=== PATIENT | female | born 1970 | race Caucasian/White ===

== ENCOUNTER 2016-07-19 15:51 | Inpatient (IN) | payer OTHER ==
[~2016-07-19] VITALS: Ht 165.1 cm; Wt 100.5 kg
[~2016-07-19 15:51] MED LIST: AUGMENTIN875 MG PO; BACTRIM,SEPT1 TABLET PO; CLEOCIN300 MG PO; Combivent IH; HUMULIN 50100 UNIT/1 SQ; KETOROLAC TROME10 MG PO; KLONOPIN0.5 M1 PO; LANTUS (UNITS)1 UNIT SC; LANTUS 3 M100 UNITS/ PO; LANTUS 3 M100 UNITS/ SC; LANTUS 3 M100 UNITS1 SC; LEVAQUIN750 MG PO; Levaquin PO; Motrin PO; NOVOLIN 70100 UNIT/1 SQ; NOVOLOG PE100 UNITS/ SC; OXYCODONE5 MG PO; PERCOCET 5/31 TABLET PO; PROZAC20 MG PO; PROZAC40 MG PO; PROzac PO; ROXICODONE5 MG PO; Robitussin AC,Tussi- PO; SEROQUEL200 MG PO; SEROQUEL400 MG PO; SOMA350 MG PO; XANAX1 MG PO; oxyCODONE PO; predniSONE PO
[2016-07-19 16:39] LABS: HEMATOCRIT 28.8 % (36.0-46.0); MCH 27.5 PG (29.0-34.0); MCV 83.5 FL (83-99); MEAN PLAT.VOLUME 8.9 uM^3 (9.5-12.4); NRBC (%) 0.1 /100 WBC (0-0); PLATELET COUNT 230 K/uL (156-360); RBC DIS.WIDTH-CV 15.2 % (11.8-14.6); RBC DIS.WIDTH-SD 46.5 % (39-53); RED BLOOD COUNT 3.45 M/uL (3.80-5.20); WHITE BLOOD COUNT 16.6 K/uL (4.1-10.2)
[2016-07-19 16:47] LABS: CHLORIDE 97 mEq/L (99-109); POTASSIUM 4.3 mEq/L (3.7-5.4); SODIUM 128 mEq/L (136-147)
[2016-07-19 16:49] LABS: GLUCOSE 312 mg/dL (70-99)
[2016-07-19 16:50] LABS: ANION GAP 6 MEQ/L (2-14)
[2016-07-19 16:53] LABS: GFR ESTIMATE (CALCULATED) > 59 mL/min/
[2016-07-19 16:54] LABS: UREA NITROGEN (BUN) 13 mg/dL (9-23)
[2016-07-19 17:06] LABS: ADD MIUA? YES; BILIRUBIN NEGATIVE; BLOOD SMALL; COLOR YELLOW ((YELLOW)); GLUCOSE (STRIP) >=500; KETONES NEGATIVE; LEUKOCYTES NEGATIVE; NITRITE NEGATIVE; PROTEIN (STRIP) 100; SPECIFIC GRAVITY 1.026 (1.000-1.030); UROBILINOGEN 0.2 MG/DL (0.2-1.0)
[2016-07-19 17:18] LABS: BACTERIA NONE SEEN /HPF; EPITHELIAL CELLS RARE /HPF; MUCUS NONE SEEN /LPF; RED BLOOD CELLS 0-5 /HPF (0-5); UCUL ADDED? NO; WHITE BLOOD CELLS 0-5 /HPF (0-5)
[2016-07-19 18:34] LABS: ERTH.SED.RATE 73 MM/HR (0-20)
[2016-07-19] MEDS ORDERED: LEVEMIR100 UNIT/2 SC ×2 (19:42→19:43)
[2016-07-20 05:54] LABS: POINT-OF-CARE METER ID UU13113702; POINT-OF-CARE USER ID 611181311
[2016-07-20 08:40] LABS: POINT-OF-CARE METER ID UU13113702; POINT-OF-CARE USER ID STWBNM
[2016-07-20 09:59] LABS: HEMATOCRIT 27.1 % (36.0-46.0); MCH 27.4 PG (29.0-34.0); MCHC 32.8 G/DL (30.0-36.0); MCV 83.4 FL (83-99); MEAN PLAT.VOLUME 8.9 uM^3 (9.5-12.4); PLATELET COUNT 234 K/uL (156-360); RBC DIS.WIDTH-SD 46.5 % (39-53); RED BLOOD COUNT 3.25 M/uL (3.80-5.20); WHITE BLOOD COUNT 16.4 K/uL (4.1-10.2)
[2016-07-20 10:12] LABS: CHLORIDE 101 mEq/L (99-109); SODIUM 130 mEq/L (136-147)
[2016-07-20 10:14] LABS: GLUCOSE 177 mg/dL (70-99); POTASSIUM 3.3 mEq/L (3.7-5.4)
[2016-07-20 10:16] LABS: ANION GAP 7 MEQ/L (2-14); TOTAL BILIRUBIN 0.6 mg/dL (0.0-1.0)
[2016-07-20 10:18] LABS: ALKALINE PHOSPHATASE 92 IU/L (3-129); GFR ESTIMATE (CALCULATED) > 59 mL/min/
[2016-07-20 10:19] VITALS: BP 157/74
[2016-07-20 10:19] LABS: UREA NITROGEN (BUN) 11 mg/dL (9-23)
[2016-07-20 11:18] LABS: POINT-OF-CARE METER ID UU14188577
[2016-07-20 12:16] VITALS: BP 142/64
[2016-07-20 12:16] LABS: HBSG INDEX 0.23
[2016-07-20 12:17] LABS: ANTI-HEPATITIS A VIRUS (IGM) Nonreactive; ANTI-HEPATITIS B CORE (IGM) Nonreactive; HBC IgM INDEX 0.08
[2016-07-20 12:18] LABS: HIV INDEX 0.08; HIV-1/2 AB/AG COMBO Nonreactive
[2016-07-20 12:53] LABS: HPCA INDEX 10.56
[2016-07-20 16:15] VITALS: BP 164/58
[2016-07-20 19:25] LABS: POINT-OF-CARE METER ID UU14188577
[2016-07-21] VITALS (8 sets, daily range): BP systolic 128–162; BP diastolic 46–71
[2016-07-21 06:41] LABS: POINT-OF-CARE METER ID UU14188577
[2016-07-21 07:27] LABS: POINT-OF-CARE METER ID UU14188577
[2016-07-21 07:42] LABS: POINT-OF-CARE METER ID UU14149397
[2016-07-21 08:51] LABS: EOSINOPHIL (%) 0.1 % (0-5); HEMATOCRIT 27.6 % (36.0-46.0); IMMATURE GRANULOCYTE (%) 1.5 % (0.0-0.7); IMMATURE GRANULOCYTE COUNT 0.3 K/uL; INSTRUMENT ABS NEUTROPHIL CT 15.3 K/uL; LYMPHOCYTE COUNT 1.1 K/uL (1.0-2.8); MCH 26.8 PG (29.0-34.0); MCHC 32.2 G/DL (30.0-36.0); MCV 83.1 FL (83-99); MONOCYTE (%) 4.1 % (3-12); MONOCYTE COUNT 0.7 K/uL (0-0.8); NEUTROPHIL COUNT 15.3 K/uL (1.8-6.4); RBC DIS.WIDTH-CV 15.3 % (11.8-14.6); RBC DIS.WIDTH-SD 46.7 % (39-53); RED BLOOD COUNT 3.32 M/uL (3.80-5.20); WHITE BLOOD COUNT 17.4 K/uL (4.1-10.2)
[2016-07-21 09:21] LABS: ANION GAP 11 MEQ/L (2-14); CHLORIDE 99 MEQ/L (99-109); GFR ESTIMATE (CALCULATED) > 59 mL/min/; POTASSIUM 3.5 MEQ/L (3.7-5.4); SAMPLE HEMOLYSIS CHECK 0; SAMPLE ICTERIC CHECK 0; SAMPLE LIPEMIA CHECK 0; SODIUM 131 MEQ/L (136-147); UREA NITROGEN (BUN) 12 mg/dL (9-23)
[2016-07-21 09:25] LABS: GLUCOSE 59 mg/dL (70-99)
[2016-07-21 10:42] LABS: MEAN PLAT.VOLUME 10.7 uM^3 (9.5-12.4); PLATELET CLUMPS PRESENT - PLATELET COUNT APPEARS ADQ.; PLATELET COUNT 192 K/uL (156-360)
[2016-07-21 12:54] LABS: POINT-OF-CARE METER ID UU14188577
[2016-07-22 06:34] VITALS: BP 160/58
[2016-07-22 07:55] VITALS: BP 142/58
[2016-07-22 09:37] LABS: HEMATOCRIT 28.1 % (36.0-46.0); MCH 26.7 PG (29.0-34.0); MCV 83.4 FL (83-99); MEAN PLAT.VOLUME 8.9 uM^3 (9.5-12.4); PLATELET COUNT 258 K/uL (156-360); RBC DIS.WIDTH-CV 15.3 % (11.8-14.6); RED BLOOD COUNT 3.37 M/uL (3.80-5.20); WHITE BLOOD COUNT 12.4 K/uL (4.1-10.2)
[2016-07-22 09:43] LABS: CHLORIDE 100 mEq/L (99-109); POTASSIUM 3.3 mEq/L (3.7-5.4); SODIUM 131 mEq/L (136-147)
[2016-07-22 09:46] LABS: GLUCOSE 98 mg/dL (70-99)
[2016-07-22 09:47] LABS: ANION GAP 8 MEQ/L (2-14)
[2016-07-22 09:49] LABS: GFR ESTIMATE (CALCULATED) > 59 mL/min/
[2016-07-22 09:50] LABS: UREA NITROGEN (BUN) 10 mg/dL (9-23)
[2016-07-22 10:10] LABS: HCV RNA (LOG IU/mL) 6.15 (<1.18)
[2016-07-22 12:00] VITALS: BP 132/56
[2016-07-22 13:17] LABS: MAGNESIUM 2.6 mg/dL (1.3-2.7)
[2016-07-22 16:01] VITALS: BP 138/60
[2016-07-22 19:18] VITALS: BP 144/63
[2016-07-22 23:22] VITALS: BP 144/69
[2016-07-23 00:08] LABS: POINT-OF-CARE USER ID 608261316
[2016-07-23 03:46] VITALS: BP 153/68
[2016-07-23 06:54] LABS: POINT-OF-CARE METER ID UU14149397
[2016-07-23 07:17] LABS: POINT-OF-CARE METER ID UU14188577
[2016-07-23 08:00] VITALS: BP 131/62
[2016-07-23 09:43] LABS: HEMATOCRIT 26.7 % (36.0-46.0); MCH 27.2 PG (29.0-34.0); MCHC 32.2 G/DL (30.0-36.0); MCV 84.5 FL (83-99); MEAN PLAT.VOLUME 8.9 uM^3 (9.5-12.4); PLATELET COUNT 321 K/uL (156-360); RBC DIS.WIDTH-CV 15.4 % (11.8-14.6); RBC DIS.WIDTH-SD 47.8 % (39-53); RED BLOOD COUNT 3.16 M/uL (3.80-5.20); WHITE BLOOD COUNT 13.6 K/uL (4.1-10.2)
[2016-07-23 10:23] LABS: ANION GAP 11 MEQ/L (2-14); CHLORIDE 101 MEQ/L (99-109); GFR ESTIMATE (CALCULATED) > 59 mL/min/; GLUCOSE 196 mg/dL (70-99); POTASSIUM 3.8 MEQ/L (3.7-5.4); SAMPLE HEMOLYSIS CHECK 0; SAMPLE ICTERIC CHECK 0; SAMPLE LIPEMIA CHECK 0; SODIUM 134 MEQ/L (136-147); UREA NITROGEN (BUN) 10 mg/dL (9-23)
[2016-07-23 11:47] VITALS: BP 137/66
[2016-07-23 16:00] VITALS: BP 143/71
[2016-07-23 16:23] LABS: POINT-OF-CARE METER ID UU14188577
[2016-07-23 19:49] VITALS: BP 173/74
[2016-07-23 21:48] LABS: POINT-OF-CARE METER ID UU14149397
[2016-07-23 23:36] VITALS: BP 173/81
[2016-07-24 04:12] VITALS: BP 130/61
[2016-07-24 08:10] VITALS: BP 152/78
[2016-07-24 08:33] LABS: HEMATOCRIT 28.7 % (36.0-46.0); MCH 27.3 PG (29.0-34.0); MCHC 32.1 G/DL (30.0-36.0); MCV 85.2 FL (83-99); MEAN PLAT.VOLUME 8.4 uM^3 (9.5-12.4); PLATELET COUNT 334 K/uL (156-360); RBC DIS.WIDTH-CV 15.4 % (11.8-14.6); RBC DIS.WIDTH-SD 47.8 % (39-53); RED BLOOD COUNT 3.37 M/uL (3.80-5.20); WHITE BLOOD COUNT 10.5 K/uL (4.1-10.2)
[2016-07-24 09:04] LABS: ANION GAP 6 MEQ/L (2-14); CHLORIDE 102 MEQ/L (99-109); GFR ESTIMATE (CALCULATED) > 59 mL/min/; GLUCOSE 41 mg/dL (70-99); POTASSIUM 4.1 MEQ/L (3.7-5.4); SAMPLE HEMOLYSIS CHECK 0; SAMPLE ICTERIC CHECK 0; SAMPLE LIPEMIA CHECK 0; SODIUM 137 MEQ/L (136-147); UREA NITROGEN (BUN) 10 mg/dL (9-23)
[2016-07-24 09:56] LABS: POINT-OF-CARE METER ID UU14188577
[2016-07-24 11:38] VITALS: BP 162/82
[2016-07-24 11:38] LABS: POINT-OF-CARE METER ID UU14188577
[2016-07-24 16:23] VITALS: BP 152/68
[2016-07-24 19:49] VITALS: BP 142/68
[2016-07-24 23:39] VITALS: BP 142/87
[2016-07-25 04:51] VITALS: BP 113/57
[2016-07-25 07:24] VITALS: BP 122/63
[2016-07-25] MEDS ORDERED: BISACODYL5 MG PO (11:40)
[2016-07-25] MEDS ORDERED: OXYCODONE HCL5 MG PO (11:40)
[2016-07-25] MEDS ORDERED: QUETIAPINE FUM200 MG PO (11:40)
[2016-07-25] MEDS ORDERED: NICOTINE PATCH1 EAC2 TD (11:40)
[2016-07-25] MEDS ORDERED: TIZANIDINE HCL4 MG PO (11:40)
[2016-07-25] MEDS ORDERED: LEVEMIR100 UNIT/2 SC (11:40)
[2016-07-25] MEDS ORDERED: LYRICA75 MG PO (11:40)
[2016-07-25] MEDS ORDERED: FLUOXETINE HCL20 MG PO (11:40)
[2016-07-25 11:44] LABS: POINT-OF-CARE METER ID UU14188577
== END 2016-07-25 16:11 | DRG 853 ==
LOC: EME 15:51 → EDOF 21:46 → 3EAST 21:46
PROVIDERS: Emergency Medicine; Internal Medicine; Physician Assistant; Student in an Organized Health Care Education/Training Program
PROC: 009U3ZZ Drainage of Spinal Canal, Percutaneous Approach (ICD-10-PCS; principal; 2016-07-20)
PROC: 00NY0ZZ Release Lumbar Spinal Cord, Open Approach (ICD-10-PCS; principal; 2016-07-20)
PROC: 05HQ33Z Insertion of Infusion Device into Left External Jugular Vein, Percutaneous Approach (ICD-10-PCS; principal; 2016-07-20)
PROC: 0S9D3ZZ Drainage of Left Knee Joint, Percutaneous Approach (ICD-10-PCS; 2016-07-23)
DX: A41.9 Sepsis, unspecified organism (principal); G06.1 Intraspinal abscess and granuloma; E87.1 Hypo-osmolality and hyponatremia; E66.01 Morbid (severe) obesity due to excess calories; Z68.36 Body mass index [BMI] 36.0-36.9, adult; D64.9 Anemia, unspecified; N31.9 Neuromuscular dysfunction of bladder, unspecified; S51.802A Unspecified open wound of left forearm, initial encounter; F17.210 Nicotine dependence, cigarettes, uncomplicated; B18.2 Chronic viral hepatitis C; E87.6 Hypokalemia; F31.9 Bipolar disorder, unspecified; G40.909 Epilepsy, unspecified, not intractable, without status epilepticus; G89.4 Chronic pain syndrome; F11.20 Opioid dependence, uncomplicated; Z91.19 Patient's noncompliance with other medical treatment and regimen; Z98.1 Arthrodesis status; B95.62 Methicillin resistant Staphylococcus aureus infection as the cause of diseases classified elsewhere; M17.12 Unilateral primary osteoarthritis, left knee; E11.649 Type 2 diabetes mellitus with hypoglycemia without coma
CPT/HCPCS: 71010; 72020; 72131; 72157; 72158; 73090; 73564; 74176; 76000; 76937; 80048; 80053; 80074; 80202; 81003; 82607; 82728; 82746; 82948; 83605; 83735; 85025; 85027; 85651; 86703; 87040; 87070; 87075; 87077; 87147; 87186; 87205; 87522 90; 87801; 93306; 93971; 94640; 94799; 99281; 99285; A6260; C1753; J0330; J0690; J0692; J0696; J1100; J1170; J1644; J1815; J2250; J2405; J2710; J2930; J3010; J3370; J3480; J7030; J7050; S0020; S0028; S0030

== ENCOUNTER 2017-01-26 23:42 | Inpatient (IN) | payer OTHER ==
[~2017-01-26] VITALS: Ht 160 cm; Wt 99.0 kg
[~2017-01-26 23:42] MED LIST changes: +BISACODYL5 MG PO; +FLUOXETINE HCL20 MG PO; +LEVEMIR100 UNIT/2 SC; +LYRICA75 MG PO; +NICOTINE PATCH1 EAC2 TD; +OXYCODONE HCL5 MG PO; +QUETIAPINE FUM200 MG PO; +TIZANIDINE HCL4 MG PO
[2017-01-27 00:45] LABS: BASOPHIL COUNT 0.1 K/uL (0-0.1); EOSINOPHIL (%) 0.7 % (0-5); EOSINOPHIL COUNT 0.1 K/uL (0-0.3); HEMATOCRIT 33.6 % (36.0-46.0); IMMATURE GRANULOCYTE (%) 0.4 % (0.0-0.7); LYMPHOCYTE COUNT 3.1 K/uL (1.0-2.8); MCH 25.4 PG (29.0-34.0); MCHC 30.7 G/DL (30.0-36.0); MEAN PLAT.VOLUME 8.5 uM^3 (9.5-12.4); MONOCYTE (%) 4.4 % (3-12); MONOCYTE COUNT 0.3 K/uL (0-0.8); NEUTROPHIL (%) 52.8 % (45-76); PLATELET COUNT 307 K/uL (156-360); RED BLOOD COUNT 4.05 M/uL (3.80-5.20); WHITE BLOOD COUNT 7.5 K/uL (4.1-10.2)
[2017-01-27 00:56] LABS: CHLORIDE 103 mEq/L (99-109); POTASSIUM 3.6 mEq/L (3.7-5.4); SODIUM 137 mEq/L (136-147)
[2017-01-27 00:57] LABS: GLUCOSE 191 mg/dL (70-99)
[2017-01-27 00:59] LABS: ANION GAP 9 MEQ/L (2-14)
[2017-01-27 01:01] LABS: GFR ESTIMATE (CALCULATED) 56 mL/min/
[2017-01-27 01:02] LABS: UREA NITROGEN (BUN) 17 mg/dL (9-23)
[2017-01-27 01:35] LABS: ERTH.SED.RATE 81 MM/HR (0-20)
[2017-01-27] MEDS ORDERED: LEVEMIR100 UNIT/2 SC ×2 (07:22)
[2017-01-27 07:32] LABS: Estimated Average Glucose 163 mg/dL (70-123); HEMOGLOBIN A1c (GLYCOHEMOGLOB) 7.3 % HGB (Below 5.7)
[2017-01-27 08:45] VITALS: BP 112/57
[2017-01-27 09:00] VITALS: BP 112/57
[2017-01-27 11:34] VITALS: BP 112/57
[2017-01-27 11:39] LABS: POINT-OF-CARE METER ID UU14149397
[2017-01-27 15:45] VITALS: BP 124/66
[2017-01-27 16:44] LABS: POINT-OF-CARE METER ID UU14149397
[2017-01-27 22:14] LABS: POINT-OF-CARE METER ID UU14117124
[2017-01-27] MEDS ORDERED: SEROQUEL400 MG PO (22:26)
[2017-01-27 23:25] VITALS: BP 105/52
[2017-01-28 06:47] LABS: POINT-OF-CARE METER ID UU14149397
[2017-01-28 08:14] VITALS: BP 140/68
[2017-01-28 08:17] LABS: MCH 25.7 PG (29.0-34.0); MCHC 30.6 G/DL (30.0-36.0); MCV 83.8 FL (83-99); MEAN PLAT.VOLUME 8.6 uM^3 (9.5-12.4); PLATELET COUNT 304 K/uL (156-360); RBC DIS.WIDTH-CV 16.2 % (11.8-14.6); RBC DIS.WIDTH-SD 49.1 % (39-53); RED BLOOD COUNT 3.82 M/uL (3.80-5.20); WHITE BLOOD COUNT 7.3 K/uL (4.1-10.2)
[2017-01-28 08:49] LABS: ANION GAP 6 MEQ/L (2-14); C-REACTIVE PROTEIN 15.8 MG/L (0-10); CHLORIDE 112 MEQ/L (99-109); GFR ESTIMATE (CALCULATED) > 59 mL/min/; GLUCOSE 153 mg/dL (70-99); POTASSIUM 4.1 MEQ/L (3.7-5.4); SAMPLE HEMOLYSIS CHECK 0; SAMPLE ICTERIC CHECK 0; SAMPLE LIPEMIA CHECK 0; SODIUM 140 MEQ/L (136-147); UREA NITROGEN (BUN) 15 mg/dL (9-23)
[2017-01-28 10:55] LABS: POINT-OF-CARE METER ID UU14149397
[2017-01-28 15:10] VITALS: BP 157/72
[2017-01-28 16:05] LABS: POINT-OF-CARE METER ID UU14208753
[2017-01-28 21:23] LABS: POINT-OF-CARE METER ID UU14149397
[2017-01-28 22:57] VITALS: BP 128/65
[2017-01-29 07:31] LABS: POINT-OF-CARE METER ID UU14188577
[2017-01-29 08:33] VITALS: BP 121/59
[2017-01-29 11:35] LABS: POINT-OF-CARE METER ID UU14188577
[2017-01-29 11:45] VITALS: BP 108/52
[2017-01-29 16:40] LABS: POINT-OF-CARE METER ID UU14208753
[2017-01-29 22:15] LABS: POINT-OF-CARE METER ID UU14208753
[2017-01-29 23:09] VITALS: BP 105/56
[2017-01-30 06:40] LABS: POINT-OF-CARE METER ID UU14117124
[2017-01-30 06:51] LABS: HEMATOCRIT 30.2 % (36.0-46.0); MCH 25.6 PG (29.0-34.0); MCHC 30.8 G/DL (30.0-36.0); MCV 83.2 FL (83-99); MEAN PLAT.VOLUME 8.9 uM^3 (9.5-12.4); PLATELET COUNT 252 K/uL (156-360); RBC DIS.WIDTH-SD 48.7 % (39-53); RED BLOOD COUNT 3.63 M/uL (3.80-5.20); WHITE BLOOD COUNT 10.1 K/uL (4.1-10.2)
[2017-01-30 07:16] LABS: ANION GAP 7 MEQ/L (2-14); CHLORIDE 108 MEQ/L (99-109); GFR ESTIMATE (CALCULATED) 56 mL/min/; GLUCOSE 151 mg/dL (70-99); POTASSIUM 4.2 MEQ/L (3.7-5.4); SAMPLE HEMOLYSIS CHECK 0; SAMPLE ICTERIC CHECK 0; SAMPLE LIPEMIA CHECK 0; SODIUM 137 MEQ/L (136-147); UREA NITROGEN (BUN) 21 mg/dL (9-23)
[2017-01-30 08:31] VITALS: BP 120/67
[2017-01-30 11:38] LABS: POINT-OF-CARE METER ID UU14188577
[2017-01-30 16:03] VITALS: BP 124/76
[2017-01-30 17:05] LABS: POINT-OF-CARE METER ID UU14117124
[2017-01-30 21:40] LABS: POINT-OF-CARE METER ID UU14117124
[2017-01-30 23:03] VITALS: BP 130/73
[2017-01-31 06:19] LABS: HEMATOCRIT 28.1 % (36.0-46.0); MCH 25.1 PG (29.0-34.0); MCHC 30.2 G/DL (30.0-36.0); MCV 82.9 FL (83-99); MEAN PLAT.VOLUME 8.8 uM^3 (9.5-12.4); PLATELET COUNT 210 K/uL (156-360); RBC DIS.WIDTH-CV 16.2 % (11.8-14.6); RBC DIS.WIDTH-SD 48.6 % (39-53); RED BLOOD COUNT 3.39 M/uL (3.80-5.20)
[2017-01-31 06:20] LABS: POINT-OF-CARE METER ID UU14117124
[2017-01-31 06:48] LABS: ANION GAP 7 MEQ/L (2-14); CHLORIDE 108 MEQ/L (99-109); GFR ESTIMATE (CALCULATED) 46 mL/min/; POTASSIUM 4.1 MEQ/L (3.7-5.4); SAMPLE HEMOLYSIS CHECK 0; SAMPLE ICTERIC CHECK 0; SAMPLE LIPEMIA CHECK 0; SODIUM 136 MEQ/L (136-147); UREA NITROGEN (BUN) 28 mg/dL (9-23)
[2017-01-31 06:49] LABS: GLUCOSE 89 mg/dL (70-99)
[2017-01-31 08:30] VITALS: BP 136/78
[2017-01-31 11:48] LABS: POINT-OF-CARE METER ID UU14149397
[2017-01-31 16:30] VITALS: BP 146/87
[2017-01-31 17:06] LABS: POINT-OF-CARE METER ID UU14117124
[2017-01-31 21:25] LABS: POINT-OF-CARE METER ID UU14149397
[2017-01-31 23:24] VITALS: BP 118/60
[2017-02-01 08:27] VITALS: BP 120/64
[2017-02-01 09:21] LABS: POINT-OF-CARE METER ID UU14117124
[2017-02-01 10:21] LABS: ANION GAP 8 MEQ/L (2-14); CHLORIDE 110 MEQ/L (99-109); GFR ESTIMATE (CALCULATED) 43 mL/min/; POTASSIUM 4.4 MEQ/L (3.7-5.4); SAMPLE HEMOLYSIS CHECK 0; SAMPLE ICTERIC CHECK 0; SAMPLE LIPEMIA CHECK 0; SODIUM 140 MEQ/L (136-147); UREA NITROGEN (BUN) 25 mg/dL (9-23); VANCOMYCIN, TROUGH 14.4 MCG/ML (10-20)
[2017-02-01 10:23] LABS: GLUCOSE 146 mg/dL (70-99)
[2017-02-01 11:33] LABS: POINT-OF-CARE METER ID UU14149397
[2017-02-01] MEDS ORDERED: CYCLOBENZAPRINE10 MG PO (14:51)
[2017-02-01] MEDS ORDERED: OXYCODONE HCL15 MG PO (14:51)
[2017-02-01] MEDS ORDERED: GABAPENTIN300 MG PO (14:51)
[2017-02-01] MEDS ORDERED: NOVOLOG PE100 UNITS/ SC (15:10)
[2017-02-01 15:57] VITALS: BP 134/74
[2017-02-01 16:18] LABS: POINT-OF-CARE METER ID UU14149397
[2017-02-01 17:35] VITALS: BP 134/74
== END 2017-02-01 18:02 | DRG 552 ==
LOC: EXP 23:42 → EME 23:42 → EDOF 01-27 06:00 → 3EAST 01-27 06:00 → EDOF 01-27 06:00 → ENRESERV 01-27 06:03 → 3EAST 01-27 08:35
PROVIDERS: Family Medicine; Hospitalist; Physician Assistant
DX: M46.1 Sacroiliitis, not elsewhere classified (principal); B95.62 Methicillin resistant Staphylococcus aureus infection as the cause of diseases classified elsewhere; B95.1 Streptococcus, group B, as the cause of diseases classified elsewhere; F11.23 Opioid dependence with withdrawal; B18.2 Chronic viral hepatitis C; E11.9 Type 2 diabetes mellitus without complications; F17.210 Nicotine dependence, cigarettes, uncomplicated; T80.1XXA Vascular complications following infusion, transfusion and therapeutic injection, initial encounter; I80.8 Phlebitis and thrombophlebitis of other sites; S51.802A Unspecified open wound of left forearm, initial encounter; Z79.4 Long term (current) use of insulin; M12.88 Other specific arthropathies, not elsewhere classified, other specified site; Z86.14 Personal history of Methicillin resistant Staphylococcus aureus infection; Z98.1 Arthrodesis status; N31.9 Neuromuscular dysfunction of bladder, unspecified; Z86.61 Personal history of infections of the central nervous system
CPT/HCPCS: 71010; 72158; 80048; 80202; 82948; 83036; 83605; 85025; 85027; 85651; 86140; 86812 90; 87040; 87077; 87147; 87186; 87801; 93306; 93971; 99281; 99285; A6260; G0378; J1170; J1650; J1815; J2060; J2270; J2405; J2540; J2543; J3370; J7030; J7050